=== PATIENT | female | born 1990 | race Caucasian/White ===

== ENCOUNTER 2024-06-02 14:57 | Emergency (ER) | payer OTHER, SELFPAY ==
[2024-06-02] VITALS (15 sets, daily range): BP systolic 100–132; BP diastolic 62–87; PULSE 76–94; RESP 12–20; TEMP 36.9; O2SAT 93–99; BMI 29.2
--- NOTE | 2024-06-02 15:17 | ED.ABDPAIN ---
HPI - Abdominal Pain General Chief Complaint: Abdominal Pain Stated Complaint: severe abd pain right side Time Seen by Provider: 06/02/24 14:58 History of Present Illness HPI narrative: This 33-year-old female comes in with pain in the right lower quadrant of her abdomen. She states she was pushing a wheelbarrow all and had sudden onset of severe pain in the right lower quadrant that is persisted since then. This occurred just prior to arrival. She reports some nausea but does not have any report of dysuria or fever. She does have a history of ulcerative colitis but has been in remission for the past 3 years. Related Data Home Medications ?Medication ?Instructions ?Recorded ?Confirmed No Known Home Medications 06/02/24 06/02/24 Allergies Allergy/AdvReac Type Severity Reaction Status Date / Time amoxicillin [From Augmentin] Allergy Verified 06/02/24 15:05 cefixime [From Suprax] Allergy Verified 06/02/24 15:05 clavulanic acid Allergy Verified 06/02/24 15:05 [From Augmentin] Review of Systems Status of ROS Reports: 10 or more systems reviewed and unremarkable except as noted in History and below Narrative Constitutional: No fevers, no weight gain or loss. Eyes: No discharge. No vision changes. HENT: No congestion, no sore throat, no ear pain. Cardiovascular: No chest pain, no palpitations. Respiratory: No shortness of breath, no wheezes, no cough. Gastrointestinal: No vomiting, no diarrhea. Abdominal pain as described above. Genitourinary: No dysuria, no hematuria. Musculoskeletal: Normal range of motion. Skin: No rashes, no pruritis. Neurological: No dizziness, weakness, sensory change, speech change. Endo/Heme/Allergies: No bruising or bleeding. No polydipsia. Pysch: no suicidality, no anxiety, no insomnia. All other systems reviewed and are negative. PFSH PFS Social History Smoking Status: Never smoker Non-prescribed substance use: denies use Exam Narrative: Exam Narrative: Constitutional: Well-developed, well-nourished, no acute distress. HEENT: Normocephalic, atraumatic. Neck: Normal range of motion. Nontender. Supple. Heart: Regular. No murmurs. Normal rate. Intact distal pulses. Lungs: Clear to auscultation. No chest discomfort. No wheezes, rhonchi, or rales. Abdomen: Normal bowel sounds. Diffuse tenderness in the right lower quadrant. No rebound tenderness. Rovsing sign is negative. Genitalia: Deferred. Back: No midline tenderness. Normal range of motion. Extremities: Normal range of motion. No injury. Skin: Intact. No rash. Warm. No erythema or pallor. Neurologic: No altered sensation. No weakness. Alert and oriented. Psychiatric: No suicidality. No anxiety or depression. No insomnia. Nursing notes and vitals signs are reviewed. Const: Vital Signs, click to edit/add: Vital Signs - 24 hr 06/02/24 15:02 06/02/24 17:36 06/02/24 18:00 Temperature 98.4 F Pulse Rate 86 93 Pulse Rate [Right Pulse Oximeter] 88 Respiratory Rate 20 16 14 Blood Pressure Blood Pressure [Ri ght Upper Arm] 132/87 Pulse Oximetry 97 93 95 Oxygen Delivery Me thod Room Air 06/02/24 18:30 06/02/24 19:23 Temperature Pulse Rate 93 86 Pulse Rate [Right Pulse Oximeter] Respiratory Rate 12 12 Blood Pressure 100/62 Blood Pressure [Ri ght Upper Arm] Pulse Oximetry 96 97 Oxygen Delivery Me thod Course Vital Signs Vital signs: Initial Vital Signs Temperature 98.4 F 06/02/24 15:02 Temperature Source Oral 06/02/24 15:02 Pulse Rate 88 06/02/24 15:02 Pulse Rhythm Regular 06/02/24 15:02 Respiratory Rate 20 06/02/24 15:02 Blood Pressure 132/87 06/02/24 15:02 Blood Pressure Mean 102 06/02/24 15:02 Blood Pressure Position Sitting 06/02/24 15:02 Pulse Oximetry 97 06/02/24 15:02 Oxygen Delivery Method Room Air 06/02/24 15:02 Vital Signs Temperature 98.4 F 06/02/24 15:02 Pulse Rate 88 06/02/24 15:02 Respiratory Rate 20 06/02/24 15:02 Blood Pressure 132/87 06/02/24 15:02 Pulse Oximetry 97 06/02/24 15:02 Oxygen Delivery Method Room Air 06/02/24 15:02 Temperature 98.4 F 06/02/24 15:02 Pulse Rate 86 06/02/24 19:23 Respiratory Rate 12 06/02/24 19:23 Blood Pressure 100/62 06/02/24 19:23 Pulse Oximetry 97 06/02/24 19:23 Oxygen Delivery Method Room Air 06/02/24 15:02 Medications Administered Medications: Discontinued Medications Generic Name Dose Route Start Last Admin Trade Name Jessica PRN Reason Stop Dose Admin Hydromorphone HCl 0.5 mg 06/02/24 15:15 06/02/24 15:52 Hydromorphone 0.5 Mg/0.5 Ml Inj IVP 06/02/24 15:16 0.5 mg ONCE ONE Administration Sodium Chloride 1,000 mls @ 1,000 mls/hr 06/02/24 18:15 06/02/24 19:51 0.9 % Sodium Chloride 1000 Ml IV 06/02/24 19:14 Infused .Q1H LINETTE Infusion Sodium Chloride 1,000 mls @ 1,000 mls/hr 06/02/24 18:45 06/02/24 19:43 0.9 % Sodium Chloride 1000 Ml IV 06/02/24 19:44 Not Given .Q1H LINETTE Ketorolac Tromethamine 15 mg 06/02/24 16:56 06/02/24 17:08 Ketorolac 15 Mg/Ml Inj IVP 06/02/24 16:57 15 mg ONCE ONE Administration Meclizine HCl 25 mg 06/02/24 18:10 06/02/24 18:45 Meclizine Hcl 25 Mg Tablet PO 06/02/24 18:11 25 mg ONCE ONE Administration Ondansetron HCl 4 mg 06/02/24 15:15 06/02/24 15:51 Ondansetron 2 Mg/Ml Inj IVP 06/02/24 15:16 4 mg ONCE ONE Administration Ondansetron HCl 4 mg 06/02/24 18:10 06/02/24 18:45 Ondansetron 2 Mg/Ml Inj IVP 06/02/24 18:11 4 mg ONCE ONE Administration MDM - Abdominal Pain MDM Narrative Medical decision making narrative: This patient came in with sudden onset of severe right lower quadrant abdominal pain that sounds typical of a ruptured ovarian cyst. Her pain was constant and there was some localization of pain in the right lower quadrant. Over time her pain seemed to be more diffuse through her abdomen. The patient does have a history of ulcerative colitis but states that these symptoms are quite different and she has not had any flare up for several years. An IV was established where she received Dilaudid which brought sufficient relief to her pain. Lab results returned with normal findings as does CT imaging of her abdomen and pelvis. It does seem likely with a sudden onset of severe pain that this was an ovarian cyst that ruptured is not visible any longer because fluid has been discharge from the cyst. The patient is okay to be discharged home and received [facility] prescriptions for [place] and Zofran. Lab Data Labs: Lab Results 06/02/24 06/02/24 Range/Units 15:50 16:16 WBC 9.35 (4.50-11.00) K/uL RBC 4.57 (4.00-5.20) m/uL Hgb 13.7 (12.0-16.0) gm/dL Hct 40.8 (33.0-51.0) % MCV 89 (80-100) fL MCH 30 (26-34) pg MCHC 34 (32-36) gm/dL RDW Coeff of Chai 12.7 (11.5-15.5) % Plt Count 348 (140-440) K/uL Neut % (Auto) 65.5 (42.0-72.0) % Lymph % (Auto) 21.9 (20-44) % Spencer % (Auto) 7.5 (0.0-11.0) % Eos % (Auto) 4.6 (0.0-7.0) % Baso % (Auto) 0.4 (0.0-3.0) % Neut # (Auto) 6.12 (1.7-7.0) K/uL Lymph # (Auto) 2.05 (0.90-2.90) K/uL Spencer # (Auto) 0.70 (0.00-0.90) K/UL Eos # (Auto) 0.43 (0.00-0.50) K/uL Baso # (Auto) 0.04 (0.00-0.30) K/uL Abs Immat Gran (auto) 0.01 (0.00-0.30) K/uL Imm/Tot Granulo (auto) 0.1 % ESR 4 (2-20) mm/hr Sodium 140 (135-149) mmol/L Potassium 3.7 (3.6-5.1) mmol/L Chloride 107 (96-114) mmol/L Carbon Dioxide 24 (20-32) mmol/L Anion Gap 9 (7-15) mEq/L BUN 12 (5-24) mg/dL Creatinine 0.6 (0.5-1.5) mg/dL Estimated Creat Clear 130.12 Estimated GFR 122 ml/min Glucose 99 (60-115) mg/dL Calcium 9.8 (8.4-10.6) mg/dL C-Reactive Protein < 0.5 L (0.5-1.0) mg/dL Imaging Data CT scan - abdomen: Radiologist's impression: 1. Distended stomach. Small bowel appears normal without evidence of obstruction. 2. Changes indicative of chronic inflammation involving the distal colon. No signs of active colonic inflammation. 3. No other acute findings in the abdomen or pelvis. Discharge Plan Discharge Prescriptions: No Action No Known Home Medications Follow Up/Referrals: Provider,Not a Local [Primary Care Provider] - Procedures Ultrasound Biliary exam #1: Anatomical areas examined: gallbladder, long and short axis Indications: RUQ/epigastric pain Exam type: limited abdominal ultrasound; RUQ Description/Findings: Gallbladder is contracted but appears normal without sign of cholelithiasis or cholecystitis.
--- OUTSIDE RECORDS SUMMARY | 2024-06-02 15:39 | XMS_ITS | Clinical Summary ---
Author Organization [facility] Address [address] [address] Care Team Providers Care Police Officer Name Role Phone Unassigned, Provider Primary Care Provider Unava ilable Source Comments You are receiving this document as you are listed as the primary care provider,follow-up provider, or the patient has been referred to you for consultation.This is in compliance with the Medicare and[facility] EHR Incentive Program,which states Providers who transition their patient to another setting of careor provider of care or refers their patient to another provider of care shouldprovide summary care record for each transition of care or referral. [employer] Allergies Active Allergy Reactions Criticality Noted Date Comments Amoxicillin-Pot Clavulanate 06/14/20 20 Cefixime Rash 06/14/2020 Medications Medication Sig Dispensed Refills Start Date End Date Status [id number]-FA (PRE- OR) Take 1 tablet by mouth once daily. 05/06/2020 Active sulfaSALAzine (AZULFIDINEENTAB) 500 MG enteric coated tablet Take 1,500 mg by mouth two times a day. 05/08/2020 Active Social History Tobacco Use Types Packs/Day Years Used Date Smoking Tobacco: Never Smokeless Tobacco: Never Sex and Gender Information Value Date Recorded Sex Assigned at Not on file Gender Identity Not on file Sexual Orientation Not on file Last Filed Vital Signs Vital Sign Reading Time Taken Comments Blood Pressure - - Pulse - - Temperature 37.2 ??C (99 ??F) 06/14/2020 5:16 PM CDT Respiratory Rate - - Oxygen Saturation - - Inhaled Oxygen Concentration - - Weight 59 kg (130 lb) 06/14/2020 5:16 PM CDT Height 148.6 cm (4' 10.5) 06/14/2020 5:16 PM CD T Body Mass Index 26.71 06/14/2020 5:16 PM CDT Plan of Treatment Health Maintenance Due Date Last Done Comments Cervical Cancer Screening Due 1991 Hep C Screening (Preventive Services) 1991 HIV Screening (Preventive Services) 2007 Adult Preventive Visit 2009 HepB (1) 2010 COVID-19 Vaccine ( season) 2023 12/10/2020, 11/20/2020 Influenza (#1) 2024 08/07/2020, 09/30, 07/13/2016, Additional history exists DTaP/Tdap/Td (8 - Tdap) 11/23/2025 11/23/19 16, 06/21/2005, 07/25/1997, Additional history exists Zoster/Shingles (1 of 2) 2041 Hib Completed 03/27/1993, 03/30, 02/07/1992, Additional history exists IPV (Polio) Completed 07/25/1997, 07/01, 07/25/1997, Additional history exists HPV Vaccine Aged Out No longer eligi ble based on patient's age to complete this topic HepA Aged Out No longer eligi ble based on patient's age to complete this topic MCV4 Aged Out No longer eligi ble based on patient's age to complete this topic Pneumococcal Aged Out No longer eligi ble based on patient's age to complete this topic Care Teams Police Officer Relationship Specialty Start Date End Date Unassigned, Provider [address] [place] [id number] PCP - General 01/06/01
--- OUTSIDE RECORDS SUMMARY | 2024-06-02 15:40 | XMS_ITS | Clinical Summary ---
Author Organization [employer] [facility] Address [place], [place] [address] Care Team Providers Care Rubber Process Hand Name Role Phone Loni Singh Primary Care Provider Allergies Active Allergy Reactions Criticality Noted Date Comments Amoxicillin-Pot Clavulanate Rash Unknown 06/21/20 05 Cefixime Rash Unknown 06/21/2005 Medications Medication Sig Dispensed Refills Start Date End Date Status vedolizumab (ENTYVIO) 300 mg solr injection Inject 300 mg intravenous every 8 weeks. Active escitalopram oxalate (LEXAPRO) 5 mg tabletIndications:G AD (generalized anxiety disorder) Take 1 Tablet (5 mg) by mouth every morning. 60 Tablet 11/01/2023 Active hydrOXYzine HCL (ATARAX) 25 mg tabletIndications:P anic attacks 1-2 tabs po qh6 prn anxiety 30 Tablet 11/01/2023 Active Active Problems Problem Noted Date Diagnosed Date Pap smear for cervical cancer screening 04/13/20 Overview: 02/2023 NIL/HPV negative. 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 Unspecified constipation 10/18/2007 Overview: Fibercon and miralax prn. Better diet and exercise. 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 Symptomaitc instability of cervical spine mainly C3-4, s/p fusion. Seen by Dr. 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 IMPRESSION IMAGES ARE SUBMITTED FOR INTERPRETATION. BY ULTRASOUND IT IS VERY DIFFICULT TO EVALUATE FOR ABSENCE OR PRESENCE OF HORSESHOE KIDNEY. RIGHT AND LEFT KIDNEY ARE SEEN MEASURING NORMAL. NEGATIVE FOR HYDRONEPHROSIS. Encounters Date Type Department Care Team Description 05/24/2024 4:04 PM CDT - 05/24/2024 5:38 PM CDT Emergency [address] [address] Pool Nguyen DO Contusion of right foot, initial encounter (Primary Dx) Discharge Disposition: Home Self Care 05/24/2024 Travel 05/20/2024 Telephone [facility] [address] [place] [address] Loni Singh PA Referral (GASTROENTEROLOGY) 05/10/2024 1:15 PM CDT - 05/10/2024 11:59 PM CDT Hospital Encounter [address] [address] Jonathon Fowler MD Other ulcerative colitis with rectal bleeding (HC) (Primary Dx) 05/10/2024 Travel 04/13/2024 6:31 PM CDT - 04/13/2024 8:36 PM CDT Emergency [address] [address] Tammy Hein PA Fall, initial encounter (Primary Dx); Injury of head, initial encounter; Injury of chest wall, initial encounter Discharge Disposition: Home Self Care 04/13/2024 Travel 03/08/2024 2:30 PM CDT - 03/08/2024 11:59 PM CDT Hospital Encounter [address] [address] Jonathon Fowler MD Other ulcerative colitis with rectal bleeding (HC) (Primary Dx) 03/08/2024 Travel from Last 3 Months Immunizations Name Administration Dates Next Due DTP 07/25/1997, 3,04/13/1992,1991,1991 HIB PRP-OMP (PedvaxHIB) 03/27/1993,04/13,02/07/1992,1991 Hepatitis B (Adult) 06/21/2005 Hepatitis B (Peds) 03/08/2006,07/20/2005, 005 Inactivated Polio Vaccine 07/25/1997,01/1993,02/07/1992,1991 Influenza Virus, Unspecified 10/21/2019,07/13/20 16,11/23/2015 Influenza, IIV3 (Age >=3 years) 07/13/2016,11/23 Influenza, IIV4 08/25/2022, 0,10/21/2019,2015,11/23/2015 Influenza, IIV4 (=>6mos) MDV 07/13/2016,11/23/19 16 MMR 06/21/2005,07/25/1997,03/27/1993 MMR, Unspecified 06/21/2005,07/25/1997, 3 Oral Polio Vaccine 07/25/1997, 3,02/07/1992,1991 Pneumococcal Conj 20-valent (Prevnar 20) 08/25/2022 Polio (Oral Polio Vaccine,Unspecified) 07/25/1997,06/02/1993,02/07/1992,1991 Rabies Vaccine 02/09/2012,01/10/2012,01/03/2012 Tdap 11/23/2015,06/21/2005 Varicella Vaccine 12/31/1996 Family History Medical History Relation Name Comments Other Brother Reggie born about 1999 , hit by truck -- part of his brain / therapy Other Father Michael born in 1968 Heart Disease Mother Elissa DOMINGUEZ -- Cancer-breast Paternal Aunt 1 Flory bilateral b reast CA--30s--great aunt Cancer Paternal Aunt 2 flory ovarian CA-- great aunt Cancer-breast Paternal Aunt 3 Yue bilateral l ate 40s-great aunt Other Paternal Grandfather glaucom a Other Sister Kayley lazy eye, born in 1994 Relation Name Status Comments Brother Reggie Father Michael Mother Elissa Paternal Aunt 1 Flory Paternal Aunt 2 flory Paternal Aunt 3 Yue Paternal Grandfather Sister Kayley Social History Tobacco Use Types Packs/Day Years Used Date Smoking Tobacco: Never Smokeless Tobacco: Never Alcohol Use Standard Drinks/Week Comments No 0 (1 standard drink = 0.6 oz pur e alcohol) Alcoholic Drinks/day: 0 PHQ-2 Answer Date Recorded PHQ-2 TOTAL SCORE 1 03/08/2023 Social Connections Answer Date Recorded Frequency of Communication with Friends and Fami ly 0 11/01/2023 Financial Resource Strain Answer Date R ecorded Difficulty of Paying Living Expenses 3 11/01/2023 Difficulty of Paying Living Expenses Not on file 11/01/2023 Food Insecurity Answer Date Recorded Worried About Running Out of Food in the Last Ye ar 1 11/01/2023 Transportation Needs Answer Date Record ed Lack of Transportation (Medical) 1 11/01/2023 Housing Stability Answer Date Recorded Unable to Pay for Housing in the Last Year 1 11/01/2023 Sex and Gender Information Value Date Recorded Sex Assigned at Not on file Gender Identity Not on file Sexual Orientation Straight 10/14/2021 12 :43 PM OUTSOLE ROUNDER Obstetrics History Last Filed Vital Signs Vital Sign Reading Time Taken Comments Blood Pressure 99/72 05/24/2024 5:37 PM CDT Pulse 71 05/24/2024 4:00 PM CDT Temperature 36.5 ??C (97.7 ??F) 05/24/2024 4:00 PM CD T Respiratory Rate 16 05/24/2024 4:00 PM CDT Oxygen Saturation 100% 05/24/2024 4:00 PM CDT Inhaled Oxygen Concentration - - Weight 61.2 kg (135 lb) 05/24/2024 5:00 PM CDT Height 144.8 cm (4' 9) 05/24/2024 5:00 PM CDT Body Mass Index 29.21 05/24/2024 5:00 PM CDT Plan of Treatment Upcoming Encounters Date Type Department Care Team (Late st Contact Info) Description 07/09/2024 12:30 PM CDT Appointment [facility] [address] [place] [address] 09/09/2024 1:00 PM OUTSOLE ROUNDER Office Visit [facility] [address] [place] [address] Melisa Angeles, OD [address] [place] [address] Health Maintenance Due Date Last Done Comments HIV for age 15-65 2006 Hepatitis C screening for ag e 18-79 2009 COVID-19 vaccine series ( season) 2023 11/12/2021, 12/10/2020, 11/20/2020 BMI (ht and wt on same day) for age 18+ 03/08/2024 03/08/2023, 08/07/2020, 12/21/2018, Additional history exists Depression screening for age 12+ 03/08/2024 03/08/2023, 05/18/2020, 03/12/2020, Additional history exists Influenza for age 9-49 06/30/2024 2, 08/07/2020, 10/21/2019, Additional history exists Tetanus booster 11/23/2025 11/23/2015, 06/21/2005 Pap test for age 21-65 03/08/2028 3, 03/08/2023, 12/01/2015 Tdap Completed 11/23/2015, 06/21/2005 Pneumococcal series for age 6-64 Completed 08/25/20 22 Procedures Procedure Name Priority Date/Time Associated Diagnosis Comments XR FOOT 3 VIEWS RIGHT STAT 05/24/2024 4:36 PM CDT XR RIBS LEFT AND PA CHEST MINIMUM 3 VIEWS STAT 04/13/2024 7:[address] SPINE CERVICAL WO STAT 04/13/2024 7:[address] HEAD BRAIN WO STAT 04/13/2024 7:08 PM CDT HEPATIC FUNCTION PANEL Today 03/08/2024 3:05 PM CDT Other ulcerative colitis with rectal bleeding (HC) CBC W PLT NO DIFF Today 03/08/2024 3:0 5 PM CDT Other ulcerative colitis with rectal bleeding (HC) CREATININE Today 03/08/2024 3:05 PM CDT Other ulcerative colitis with rectal bleeding (HC) HPV THIN PREP Routine 03/08/2023 10:40 AM CDT Screening for malignant neoplasm of cervix from Last 3 Months or Most Recently Relevant to Health Maintenance Results * XR FOOT 3 VIEWS RIGHT (05/24/2024 4:36 PM CDT) Anatomical Region Laterality Modality FEET, FOOT R Computed Radiogr aphy 05/24/2024 4:36 PM CDT Impressions 05/24/2024 4:41 PM CDT Since 06/13/2021, prior nondisplaced fractures involving the right second, third, and fourth metatarsals have healed. No acute fracture. Normal joint spaces and alignment. Narrative 05/24/2024 4:41 PM CDT For Patients: As a result of the s Act, medical imaging exams and procedure reports are released immediately into your electronic medical record. You may view this report before your referring provider. If you have questions, please contact your health care provider. EXAM: XR FOOT 3 VIEWS RIGHT LOCATION: [facility] DATE: 05/24/2024 INDICATION: Pain Trauma COMPARISON: 06/13/2021. Procedure Note Selvin Qureshi MD - 05/24/2024 For Patients: As a result of the , medical imagingexams and procedure reports are released immediately into your electronicmedical record. You may view this report before your referring provider.If you have questions, please contact your health care provider. EXAM: XR FOOT 3 VIEWS RIGHT LOCATION: [facility] DATE: 05/24/2024 INDICATION: Pain Trauma COMPARISON: 06/13/2021. IMPRESSION: Since 06/13/2021, prior nondisplaced fractures involving the right second,third, and fourth metatarsals have healed. No acute fracture. Normal jointspaces and alignment. Pool Nguyen DO GENERAL IMAGING * XR RIBS LEFT AND PA CHEST MINIMUM 3 VIEWS (04/13/2024 7:14 PM CDT) Anatomical Region Laterality Modality RIBS, RIBS L, CHEST Computed Rad iography 04/13/2024 7:14 PM CDT Impressions 04/13/2024 7:23 PM CDT The visualized heart and lungs are negative. No rib fractures. Narrative 04/13/2024 7:23 PM CDT For Patients: As a result of the s Act, medical imaging exams and procedure reports are released immediately into your electronic medical record. You may view this report before your referring provider. If you have questions, please contact your health care provider. EXAM: XR RIBS LEFT AND PA CHEST MINIMUM 3 VIEWS LOCATION: [facility] DATE: 04/13/2024 INDICATION: free text)->bucked off horse, hit left side of chest on horse/ground COMPARISON: None. Procedure Note Julio Cesar Padilla MD - 04/13/2024 For Patients: As a result of the Cures Act, medical imagingexams and procedure reports are released immediately into your electronicmedical record. You may view this report before your referring provider.If you have questions, please contact your health care provider. EXAM: XR RIBS LEFT AND PA CHEST MINIMUM 3 VIEWS LOCATION: [facility] DATE: 04/13/2024 INDICATION: free text)->bucked off horse, hit left side of chest onhorse/ground COMPARISON: None. IMPRESSION: The visualized heart and lungs are negative. No rib fractures. Tammy TOMLIN VIKRAM GING * CT SPINE CERVICAL WO (04/13/2024 7:09 PM CDT) Anatomical Region Laterality Modality CERVICAL SPINE, NECK, Spine Comp uted Tomography 04/13/2024 7:09 PM CDT Impressions 04/13/2024 7:27 PM CDT 1. ??No fracture or posttraumatic subluxation. 2. ??Chronic postoperative changes and developmental vertebral morphology as above. Narrative 04/13/2024 7:27 PM CDT For Patients: As a result of the s Act, medical imaging exams and procedure reports are released immediately into your electronic medical record. You may view this report before your referring provider. If you have questions, please contact your health care provider. EXAM: CT SPINE CERVICAL WO LOCATION: [facility] DATE: 04/13/2024 INDICATION: Head injury, possible neck injury. COMPARISON: None. TECHNIQUE: Routine CT Cervical Spine without IV contrast. Multiplanar reformats. Dose reduction techniques were used. FINDINGS: VERTEBRA: No fracture or posttraumatic subluxation. Developmental intersegmental ankylosis C2-C3, C4-C5, C6-T1, T2-T3 left vertebrae at C6-T1. On segment posterior instrumentation C3-T6, no hardware failure. CANAL/FORAMINA: No high-grade canal or neural foraminal stenosis. PARASPINAL: No extraspinal abnormality. Procedure Note Ze Qiu MBBS - 04/13/2024 For Patients: As a result of the Cures Act, medical imagingexams and procedure reports are released immediately into your electronicmedical record. You may view this report before your referring provider.If you have questions, please contact your health care provider. EXAM: CT SPINE CERVICAL WO LOCATION: [facility] DATE: 04/13/2024 INDICATION: Head injury, possible neck injury. COMPARISON: None. TECHNIQUE: Routine CT Cervical Spine without IV contrast. Multiplanarreformats. Dose reduction techniques were used. FINDINGS: VERTEBRA: No fracture or posttraumatic subluxation. Developmentalintersegmental ankylosis C2-C3, C4-C5, C6-T1, T2-T3 left vertebrae atC6-T1. On segment posterior instrumentation C3-T6, no hardware failure. CANAL/FORAMINA: No high-grade canal or neural foraminal stenosis. PARASPINAL: No extraspinal abnormality. IMPRESSION: 1. No fracture or posttraumatic subluxation. 2. Chronic postoperative changes and developmental vertebral morphologyas above. Tammy QUEVEDO CT * CT HEAD BRAIN WO (04/13/2024 7:08 PM CDT) Anatomical Region Laterality Modality HEAD, BRAIN Computed Tomogra phy 04/13/2024 7:08 PM CDT Impressions 04/13/2024 7:22 PM CDT 1. ??No acute intracranial findings. Narrative 04/13/2024 7:22 PM CDT For Patients: As a result of the Cures Act, medical imaging exams and procedure reports are released immediately into your electronic medical record. You may view this report before your referring provider. If you have questions, please contact your health care provider. EXAM: CT HEAD BRAIN WO LOCATION: [facility] DATE: 04/13/2024 INDICATION: bucked off horse, hit head. COMPARISON: None. TECHNIQUE: Routine CT Head without IV contrast. Multiplanar reformats. Dose reduction techniques were used. FINDINGS: INTRACRANIAL CONTENTS: No intracranial hemorrhage, extraaxial collection, or mass effect. ??No CT evidence of acute infarct. Normal parenchymal attenuation. Normal ventricles and sulci. VISUALIZED ORBITS/SINUSES/MASTOIDS: No intraorbital abnormality. Mild mucosal thickening scattered about the paranasal sinuses. No middle ear or mastoid effusion. BONES/SOFT TISSUES: No acute abnormality. Procedure Note Ze Qiu MBBS - 04/13/2024 For Patients: As a result of the Cures Act, medical imagingexams and procedure reports are released immediately into your electronicmedical record. You may view this report before your referring provider.If you have questions, please contact your health care provider. EXAM: CT HEAD BRAIN WO LOCATION: [facility] DATE: 04/13/2024 INDICATION: bucked off horse, hit head. COMPARISON: None. TECHNIQUE: Routine CT Head without IV contrast. Multiplanar reformats.Dose reduction techniques were used. FINDINGS: INTRACRANIAL CONTENTS: No intracranial hemorrhage, extraaxial collection,or mass effect. No CT evidence of acute infarct. Normal parenchymalattenuation. Normal ventricles and sulci. VISUALIZED ORBITS/SINUSES/MASTOIDS: No intraorbital abnormality. Mildmucosal thickening scattered about the paranasal sinuses. No middle ear ormastoid effusion. BONES/SOFT TISSUES: No acute abnormality. IMPRESSION: 1. No acute intracranial findings. Tammy QUEVEDO CT * CBC W PLT NO DIFF (03/08/2024 3:05 PM CDT) WHITE BLOOD COUNT 7.3 4.5 - 11.0 thou/cu mm 03/08/2024 3:12 PM CDT [facility] RED BLOOD COUNT 4.62 4.00 - 5.20 mil/cu mm 03/08/2024 3:12 PM CDT [facility] HEMOGLOBIN 14.1 12.0 - 16.0 g/dL 03/08/2024 3:12 PM CDT [facility] HEMATOCRIT 42.5 33.0 - 51.0 % 03/08/2024 3:12 PM CDT [facility] MCV 92 80 - 100 fL 03/08/2024 3:12 PM CDT [facility] MCH 30.5 26.0 - 34.0 pg 03/08/2024 3:12 PM CDT [facility] MCHC 33.2 32.0 - 36.0 g/dL 03/08/2024 3:12 PM CDT [facility] RDW 12.7 11.5 - 15.5 % 03/08/2024 3:12 PM CDT [facility] PLATELET COUNT 400 140 - 440 thou/cu mm 03/08/2024 3:12 PM CDT [facility] MPV 9.9 6.5 - 11.0 fL 03/08/2024 3:12 PM CDT [facility] NRBC 0.0 % 03/08/2024 3:12 PM CDT [facility] ABS NRBC 0.0 thou /cu mm 03/08/2024 3:12 PM CDT [facility] Blood BLOOD SPECIMEN / Unknown Butterfly / Unknown 03/08/2024 3:05 PM CDT 03/08/2024 3:09 PM CDT Jonathon Fowler MD HEMATOLOGY [facility] [address] [place] [address], * CREATININE (03/08/2024 3:05 PM CDT) eGFR >90 >90 mL/min/1.7 3m2 03/08/2024 3:28 PM CDT [facility] Comment:As of 2022, eG FR is calculated by the CKD-EPI creatinine equation without race adjustment. ??eGFR can be influenced by muscle mass, exercise, and diet. ??The reported eGFR is an estimation only and is only applicable if the renal function is stable. CREATININE 0.60 0.50 - 0.90 mg/dL 03/08/2024 3:28 PM CDT [facility] Blood BLOOD SPECIMEN / Unknown Butterfly / Unknown 03/08/2024 3:05 PM CDT 03/08/2024 3:09 PM CDT Jonathon Fowler MD CHEMISTRY [facility] [place] [address], * (ABNORMAL) HEPATIC FUNCTION PANEL (03/08/2024 3:05 PM CDT) ALBUMIN 4.2 4.0 - 4.9 g/dL 03/08/2024 3:28 PM CDT [facility] PROTEIN,TOTAL 6.4 6.0 - 8.0 g/dL 03/08/2024 3:28 PM CDT [facility] BILIRUBIN,TOTAL 0.6 0.0 - 1.2 mg/dL 03/08/2024 3:28 PM CDT [facility] BILIRUBIN,DIRECT <0.2 0.0 - 0.3 mg/dL 03/08/2024 3:28 PM CDT [facility] BILIRUBIN,INDIRE CT 03/08/2024 3:28 PM CDT [facility] Comment:Unable to calculate, Direct Bili <0.2 ALK PHOSPHATASE 61 35 - 104 IU/L 03/08/2024 3:28 PM CDT [facility] ALT (SGPT) 6(L) 10 - 35 IU/L 03/08/2024 3:28 PM CDT [facility] AST (SGOT) 19 10 - 35 IU/L 03/08/2024 3:28 PM CDT [facility] Blood BLOOD SPECIMEN / Unknown Butterfly / Unknown 03/08/2024 3:05 PM CDT 03/08/2024 3:09 PM CDT Jonathon Fowler MD CHEMISTRY [facility] [address] [place] [address], * HPV HIGH RISK (03/08/2023 10:40 AM CDT) TYPE 16 Negative Negative 03/13/2023 12:37 PM CDT [facility] TRAL LABORATORY TYPE 18 Negative Negative 03/13/2023 12:37 PM CDT [facility] TRAL LABORATORY OTHER HIGH RISK TYPES Negative Negative 03/13/2023 12:37 PM CDT [facility] TRA LABORATORY Other (Cervical) Non-Blood / Unknown 03/08/2023 10:40 AM CDT 03/09/2023 5:17 PM CDT Narrative [facility] - 03/13/2023 12:37 PM CDT HPV types 16, 18, 31, 33, 35, 39, 45, 51, 52, 56, 58, 59, 66 and 68 DNA were undetectable or below the pre-set threshold. Methodology: Miya Rosalia 4800 HPV Test Makayla Dahl DO MICROBIOLOGY [facility] [address] [place] [address], from Last 3 Months or Most Recently Relevant to Health Maintenance Care Teams Rubber Process Hand Relationship Specialty Start Date End Date Loni Singh PA [address] [facility] [address] [place] [address] PCP - General Physician [employer] Representative 09/18/23
[2024-06-02] MEDS: ONDANSETRON 2 MG/ML inj 4 MG IVP ×2 (15:51→18:45)
[2024-06-02] MEDS: HYDROmorphone 0.5 mg/0.5 ml inj IVP (15:52)
[2024-06-02 16:18] LABS: Chloride* 107 mmol/L (96-114); Potassium* 3.7 mmol/L (3.6-5.1); Sodium* 140 mmol/L (135-149)
[2024-06-02 16:21] LABS: Anion Gap 9 mEq/L (7-15); Basophils Absolute Auto 0.04 K/uL (0.00-0.30); Basophils Percent Auto 0.4 % (0.0-3.0); Blood Urea Nitrogen* 12 mg/dL (5-24); Carbon Dioxide* 24 mmol/L (20-32); Creatinine* 0.6 mg/dL (0.5-1.5); Eosinophils Absolute Auto 0.43 K/uL (0.00-0.50); Eosinophils Percent Auto 4.6 % (0.0-7.0); Est. Creatinine Clearance* 130.12; Estimated Glomerular Filt Rate 122 ml/min; Glucose* 99 mg/dL (60-115); Hematocrit 40.8 % (33.0-51.0); Hemoglobin* 13.7 gm/dL (12.0-16.0); Immature Granulocytes Abs Auto 0.01 K/uL (0.00-0.30); Immature Granulocytes Pct Auto 0.1 %; Lymphocytes Absolute Auto 2.05 K/uL (0.90-2.90); Lymphocytes Percent Auto 21.9 % (20-44); Mean Corpuscular HGB Conc 34 gm/dL (32-36); Mean Corpuscular Hemoglobin 30 pg (26-34); Mean Corpuscular Volume 89 fL (80-100); Monocytes Percent Auto 7.5 % (0.0-11.0); Neutrophils Absolute Auto 6.12 K/uL (1.7-7.0); Neutrophils Percent Auto 65.5 % (42.0-72.0); Platelet Count* 348 K/uL (140-440); RDW Coefficient of Variation % 12.7 % (11.5-15.5); Red Blood Count 4.57 m/uL (4.00-5.20); White Blood Count* 9.35 K/uL (4.50-11.00)
[2024-06-02 16:22] LABS: Calcium* 9.8 mg/dL (8.4-10.6)
[2024-06-02 16:24] LABS: Slide Review Reflex No
[2024-06-02] MEDS: KETOROLAC 15 MG/ML inj IVP (17:08)
--- NOTE | 2024-06-02 18:31 | CRLHL7_ITS ---
For Patients: As a result of the Century Cures Act, medical imaging exams and procedure reports are released immediately into your electronic medical record. You may view this report before your referring provider. If you have questions, please contact your health care provider. INDICATION: Right lower quadrant pain, weakness, epigastric pain. History of ulcerative colitis. TECHNIQUE: CT of the abdomen and pelvis acquired with 66 cc Isovue 370 IV contrast. Coronal and sagittal reconstructions. COMPARISON: None. FINDINGS: The liver, gallbladder, spleen, pancreas, and adrenal glands are negative. No biliary dilation. Hepatic and portal veins are patent. Symmetric enhancement of the kidneys. Subcentimeter right renal hypodensities are too small to characterize. No hydronephrosis or ureteral dilation. No obstructing urinary calculi identified. Small bilateral nonobstructing renal caliceal stones. No bladder wall thickening. Uterus and adnexa are unremarkable. The stomach is distended with food material and air-fluid level. No small bowel dilation. Moderate amount of stool. There is submucosal fat deposition throughout the descending colon, sigmoid colon, and rectum which can be seen in the setting of chronic inflammation. No findings to suggest active inflammation. Cecum and appendix are located in the midline lower abdomen. The appendix is negative. No intraperitoneal free air or fluid. No lymphadenopathy. The lung bases are clear. The bones are unremarkable. IMPRESSION: 1. Distended stomach. Small bowel appears normal without evidence of obstruction. 2. Changes indicative of chronic inflammation involving the distal colon. No signs of active colonic inflammation. 3. No other acute findings in the abdomen or pelvis. Please note that all CT scans at this facility use dose modulation, iterative reconstruction, and/or weight-based dosing when appropriate to reduce radiation dose to as low as reasonably achievable. Dictated by Yeimi Riley MD @ 06/02/2024 8:48:33 PM (Electronically Signed)
[2024-06-02] MEDS: MECLIZINE HCL 25 MG TABLET PO (18:45)
[2024-06-02] MEDS: 0.9 % SODIUM CHLORIDE 1000 ml 1,000 ML IV (18:45)
[2024-06-02 19:24] LABS: C Reactive Protein* < 0.5 mg/dL (0.5-1.0)
[2024-06-02 19:52] LABS: Erythrocyte SedimentationRate* 4 mm/hr (2-20)
== END 2024-06-02 21:18 | disposition home or self-care (01) ==
PROVIDERS: Emergency Provider Emergency Medicine Emergency Medical Services
DX: R10.9 Unspecified abdominal pain (principal)
CPT/HCPCS: 36415; 74177; 76705; 80048; 85025; 85651; 86140; 96361; 96374; 96375; 99284; 99285; A9270; J1170; J1885; J2405; J7030; Q9967